=== PATIENT | male | born 1925 | race Caucasian/White ===

== ENCOUNTER 2016-04-24 14:58 | Inpatient (IN) ==
--- NOTE | 2016-04-24 15:08 | Emergency Department Note ---
Disposition Forms: ED Satisfaction Letter Chest Pain HPI - General Chief Complaint: ED Chest Pain Stated Complaint: CP/DOLORES - Related Data Home Medications Medication Instructions Recorded Confirmed Allopurinol [Zyloprim] 200 mg PO DAILY 11/15/14 04/24/16 Aspirin Enteric Coated [Aspirin EC] 81 mg PO DAILY 11/15/14 04/24/16 Atenolol [Tenormin] 50 mg PO DAILY 11/15/14 04/24/16 Atorvastatin [Lipitor] 5 mg PO DAILY 11/15/14 04/24/16 Dofetilide [Tikosyn] 500 mcg PO BID 11/15/14 04/24/16 Dutasteride [Avodart] 0.5 mg PO DAILY 11/15/14 04/24/16 Ezetimibe [Zetia] 10 mg PO DAILY 11/15/14 04/24/16 Fluticasone/Salmeterol [Advair 1 puff IH BID 11/15/14 04/24/16 250-50 Diskus] Furosemide [Lasix] 20 - 40 mg PO DAILY 11/15/14 04/24/16 Gabapentin [Neurontin] 300 mg PO TID 11/15/14 04/24/16 Lansoprazole [Prevacid] 30 mg PO DAILY 11/15/14 04/24/16 Levalbuterol [Xopenex] 2 puff IH QID 11/15/14 04/24/16 Lisinopril [Zestril] 40 mg PO DAILY 11/15/14 04/24/16 Magnesium Oxide [Mag-Ox] 400 mg PO DAILY 11/15/14 04/24/16 [place]-3S/Dha/Epa/Fish Oil [Fish 1 cap PO BID 11/15/14 04/24/16 Oil 1,200 mg Softgel] Allergies Allergy/AdvReac Type Severity Reaction Status Date / Time amlodipine Allergy Hives Verified 04/24/16 12:57 Penicillins [PCN] Allergy Hives Verified 04/24/16 12:57 Sulfa (Sulfonamide Allergy Hives Verified 04/24/16 12:57 Antibiotics) Chest Pain PMH - Past Medical History Medical history: Reports: non-contributory Surgical history: Reports: cholecystectomy, pacemaker/AICD, other (Back surgery) Psychiatric history: Reports: no psych history - Social History Smoking Status: Never smoker Alcohol use: Reports: none Drug use: Reports: none
[2016-04-24] MEDS ORDERED: Aspirin 81 MG TAB.CHEW PO STA (15:32)
--- NOTE | 2016-04-24 15:37 | Emergency Department Note ---
Disposition Clinical Impression: Chest pain Qualifiers: Chest pain type: chest pain due to myocardial ischemia Ischemic chest pain type : unspecified angina pectoris type Qualified Code(s): I20.9 - Angina pectoris, unspecified Disposition: Admitted As Inpatient Condition: Fair Referrals: NO,PCP [Primary Care Provider] - Forms: ED Satisfaction Letter Time of Disposition: 16:49 Chest Pain HPI - General Chief Complaint: ED Chest Pain Stated Complaint: CP/DOLORES Source: patient, family, EMS Mode of arrival: EMS Limitations: no limitations Vital Signs Reviewed: Yes Nursing Notes Reviewed: Yes - History of Present Illness HPI Narrative: Patient presents with chest pain. He had chest pain last night while he was lying in bed. This morning when he was exerting himself he would get this pain so he went to urgent care. Urgent care did a chest x-ray and arrange to have him transferred up here. He came by private vehicle. On the way to stop at [employer] to grab something need in this patient got up out of the car and walked into the bathroom. By time you to the bathroom he is having severe chest pain, shortness of breath, and diaphoresis and felt like his legs were to give out on him. He actually ended up urinating on his own leg because he could not do anything. They called the squad and the squad transported him here. Lying in the bed at rest he has no discomfort. Pt complaint: chest pain Onset (ago): hour(s) (Woke him up from sleep last night. Recurs every time he has exertion today) Duration: intermittent, now resolved Onset: during exertion (Although last night it came on while he was lying in bed , today it has been every time he exerts himself.) Pain Location: substernal Severity: severe (At its worst just prior to arrival) Severity scale (1-10): 0 (He says he feels no chest discomfort at this time while lying in the bed.) Quality: tightness, heaviness Pain Radiation: RUE Improves with: rest Worsens with: exertion Context: recent illness (Currently being treated for what sounds like allergic rhinitis or is not being treated with any antibiotics.) Associated symptoms: Reports: diaphoresis (Just before coming he had an episode of chest pain when he walked from his car into the [employer] to use the bathroom and he says he became so diaphoretic that it was like he had taken a shower.), dyspnea (He feels short of breath when the pain is there), other (While having the pain he gets so weak he feels like his legs are going out from under) - Related Data Home Medications Medication Instructions Recorded Confirmed Allopurinol [Zyloprim] 200 mg PO DAILY 11/15/14 04/24/16 Aspirin Enteric Coated [Aspirin EC] 81 mg PO DAILY 11/15/14 04/24/16 Atenolol [Tenormin] 50 mg PO DAILY 11/15/14 04/24/16 Atorvastatin [Lipitor] 5 mg PO DAILY 11/15/14 04/24/16 Dofetilide [Tikosyn] 500 mcg PO BID 11/15/14 04/24/16 Dutasteride [Avodart] 0.5 mg PO DAILY 11/15/14 04/24/16 Ezetimibe [Zetia] 10 mg PO DAILY 11/15/14 04/24/16 Fluticasone/Salmeterol [Advair 1 puff IH BID 11/15/14 04/24/16 250-50 Diskus] Gabapentin [Neurontin] 300 mg PO TID 11/15/14 04/24/16 Lansoprazole [Prevacid] 30 mg PO DAILY 11/15/14 04/24/16 Levalbuterol [Xopenex] 2 puff IH QID 11/15/14 04/24/16 Lisinopril [Zestril] 40 mg PO DAILY 11/15/14 04/24/16 Magnesium Oxide [Mag-Ox] 400 mg PO DAILY 11/15/14 04/24/16 [place]-3S/Dha/Epa/Fish Oil [Fish 1 cap PO DAILY 11/15/14 04/24/16 Oil 1,200 mg Softgel] Cetirizine HCl [Zyrtec] 10 mg PO DAILY 04/24/16 04/24/16 Fluticasone Propionate Nasal 50 mcg NS QPM 04/24/16 04/24/16 [Flonase] Guaifenesin [Mucinex] 600 mg PO Q12H PRN 04/24/16 04/24/16 Allergies Allergy/AdvReac Type Severity Reaction Status Date / Time amlodipine Allergy Hives Verified 04/24/16 12:57 Penicillins [PCN] Allergy Hives Verified 04/24/16 12:57 Sulfa (Sulfonamide Allergy Hives Verified 04/24/16 12:57 Antibiotics) All systems ED: reviewed and negative except as stated. Constitutional: Reports: chills (Patient says he had chills last night in bed but has had none today.). Denies: fever ENT ED: Reports: congestion. Denies: ear pain, throat pain Cardiovascular: Reports: chest pain, dyspnea on exertion. Denies: palpitations Respiratory: Denies: cough, wheezes Gastrointestinal: Denies: abdominal pain, nausea, vomiting Musculoskeletal: Denies: back pain, neck pain Integumentary: Denies: rash Neurological: Denies: headache Chest Pain PMH - Past Medical History Medical history: Reports: COPD, diabetes, GERD, hyperlipidemia, hypertension, renal disease Surgical history: Reports: cholecystectomy, pacemaker/AICD, other (Back surgery) Psychiatric history: Reports: no psych history - Social History Smoking Status: Never smoker Alcohol use: Reports: none Drug use: Reports: none Physical Exam - General Limitations: no limitations General appearance: alert, in no apparent distress - Head Head exam: atraumatic, normocephalic - Eye Eye exam: Present: normal appearance, PERRL, EOMI - ENT ENT exam: normal exam, normal oropharynx, mucous membranes moist, normal external ear exam - Neck Neck exam: Present: normal inspection, full ROM. Absent: tenderness - Chest Chest inspection: Present: normal inspection, symmetric chest wall rise. Absent : tenderness - Respiratory Respiratory exam: Present: normal lung sounds bilaterally. Absent: respiratory distress, wheezes - Cardiovascular Cardiovascular exam: Present: regular rate, normal rhythm, normal heart sounds - Abdominal Exam Abdominal exam: Present: soft, Non-Tender, normal bowel sounds - Extremities Exam Extremities exam: Present: normal inspection, full ROM. Absent: tenderness, pedal edema, calf tenderness - Neurological Exam Neurological exam: Present: alert, oriented X3 - Psychiatric Psychiatric exam: Present: normal affect, normal mood - Skin Skin exam: Present: warm, dry. Absent: rash Course Course Narrative: Patient presents with a complaint of chest pain that is associated with shortness of breath and diaphoresis and overall weakness. This is been intermittent today. It comes on every time he exerts himself. He describes a long history of symptoms of chest discomfort and shortness of breath with prolonged walking in the past, however he is only walking a short distance today and getting dramatically worse symptoms than he is ever experienced before. Furthermore is never gotten diaphoretic with this issue before. He talked about having some chills last night and then was treated for a cough and runny nose recently. We have to be concerned about an infection in the lungs but the chest x-ray itself was negative and the lung sounds are normal. I am very concerned about cardiac etiology at this point. We will be doing a chest pain workup on the patient. It is likely that he will need to be admitted to the hospital because of the significant amount of symptoms she has with minimal exertion. Final disposition will be based on diagnostic results and reevaluation. - Reevaluation(s) Reevaluation #1: Patient remains asymptomatic at this time. Lab workup is negative for acute issues. X-rays fine. EKG is uninterpretable due to the pacemaker. I do not find anything that is clearly indicative of infection. I am very concerned this represents worsening angina in this patient. He got his aspirin. He is asymptomatic at rest. We will not start any further treatment at this time. He will need to be admitted to the hospital for further evaluation. Time: 16:49 - Consultations Consultation #1: Sneha Demarco CNP - I discussed the case with the nurse practitioner on-call for the admitting team. We discussed the patient's presentation and results. He has been accepted for admission to the hospital. Time: 16:48 Vital Signs Temperature 99.3 F 04/24/16 15:03 Pulse Rate 66 04/24/16 15:03 Respiratory Rate 18 04/24/16 15:03 Blood Pressure 165/69 04/24/16 15:03 O2 Sat by Pulse Oximetry 94 L 04/24/16 15:03 Temperature 99.3 F 04/24/16 15:03 Pulse Rate 66 04/24/16 15:03 Respiratory Rate 18 04/24/16 15:03 Blood Pressure 165/69 04/24/16 15:03 O2 Sat by Pulse Oximetry 95 04/24/16 15:28 Oxygen Delivery Oxygen Delivery Room Air Chest Pain - Medical Records Medical records reviewed: Yes I reviewed the patient's medical records. - Lab Data Lab results reviewed: Yes I reviewed the patient's lab results. Result diagrams: 04/24/16 15:50 02/20/17 15:50 Lab Results 04/24/16 04/24/16 04/24/16 Range/Units 15:50 15:50 15:50 WBC 8.2 (4.3-11.1) K/mcL RBC 3.83 L (4.19-5.50) M/mcL Hgb 11.7 L (12.9-16.9) g/dL Hct 36.1 L (37.5-50.1) % MCV 94.3 (83.0-100.0) fL MCH 30.5 (28.0-33.3) pg MCHC 32.4 (31.6-35.5) g/dL RDW 14.5 (11.5-14.5) % Plt Count 153 (140-400) K/mcL MPV 11.8 (9.4-12.4) fL Immature Gran % 0.4 (0-4) % Seg Neutrophils % 75.7 % Lymphocytes % 11.9 % Monocytes % 11.4 % Eosinophils % 0.1 % Basophils % 0.5 % Neutrophils # 6.2 (1.6-8.9) K/mcL Lymphocytes # 1.0 (0.6-4.6) K/mcL Monocytes # 0.9 (0.0-1.3) K/mcL Eosinophils # 0.0 (0.0-0.6) K/mcL Basophils # 0.0 (0.0-0.2) K/mcL PT (9.4-12.1) Seconds INR Sodium 134 L (136-145) mEq/L Potassium 5.1 H (3.5-4.5) mEq/L Chloride 103 (98-109) mEq/L Carbon Dioxide 23 (19-29) mEq/L BUN 33 H D (8-26) mg/dL Creatinine 1.52 H (0.72-1.25) mg/dL Est GFR ( Amer) 53 L (> 60) Est GFR (Non-Af Amer) 43 L (> 60) BUN/Creatinine Ratio 22 (6-26) Glucose 170 H (70-99) mg/dL Calculated Osmolality 289 (280-300) Lactic Acid (0.5-2.2) mmol/L Calcium 9.4 (8.6-10.8) mg/dL Troponin I (0-0.03) ng/mL B-Natriuretic Peptide 848 H (0-100) pg/mL 04/24/16 04/24/16 04/24/16 Range/Units 15:50 15:50 15:50 WBC (4.3-11.1) K/mcL RBC (4.19-5.50) M/mcL Hgb (12.9-16.9) g/dL Hct (37.5-50.1) % MCV (83.0-100.0) fL MCH (28.0-33.3) pg MCHC (31.6-35.5) g/dL RDW (11.5-14.5) % Plt Count (140-400) K/mcL MPV (9.4-12.4) fL Immature Gran % (0-4) % Seg Neutrophils % % Lymphocytes % % Monocytes % % Eosinophils % % Basophils % % Neutrophils # (1.6-8.9) K/mcL Lymphocytes # (0.6-4.6) K/mcL Monocytes # (0.0-1.3) K/mcL Eosinophils # (0.0-0.6) K/mcL Basophils # (0.0-0.2) K/mcL PT 13.7 H (9.4-12.1) Seconds INR 1.3 Sodium (136-145) mEq/L Potassium (3.5-4.5) mEq/L Chloride (98-109) mEq/L Carbon Dioxide (19-29) mEq/L BUN (8-26) mg/dL Creatinine (0.72-1.25) mg/dL Est GFR ( Amer) (> 60) Est GFR (Non-Af Amer) (> 60) BUN/Creatinine Ratio (6-26) Glucose (70-99) mg/dL Calculated Osmolality (280-300) Lactic Acid 2.1 (0.5-2.2) mmol/L Calcium (8.6-10.8) mg/dL Troponin I 0.02 (0-0.03) ng/mL B-Natriuretic Peptide (0-100) pg/mL - Radiology Data Radiology results reviewed: Yes I reviewed the patient's radiology results. Chest x-ray was done earlier today at the urgent care. That chest x-ray was read by the radiologist as unremarkable. - EKG Data EKG attestation: Yes I reviewed and interpreted this EKG. Rate: normal Rhythm: other (Ventricular paced rhythm) Interpretation: other (Electronic ventricular paced rhythm. Nothing else can be said about this 12-lead EKG.)
[2016-04-24 16:01] LABS: Basophils % 0.5 %; Eosinophils % 0.1 %; Hematocrit 36.1 % (37.5-50.1); Hemoglobin 11.7 g/dL (12.9-16.9); Immature Granulocytes % 0.4 % (0-4); Lymphocytes % 11.9 %; Mean Corpuscular HGB Conc 32.4 g/dL (31.6-35.5); Mean Corpuscular Hemoglobin 30.5 pg (28.0-33.3); Mean Corpuscular Volume 94.3 fL (83.0-100.0); Mean Platelet Volume 11.8 fL (9.4-12.4); Monocytes # 0.9 K/mcL (0.0-1.3); Monocytes % 11.4 %; Neutrophils # 6.2 K/mcL (1.6-8.9); Platelet Count 153 K/mcL (140-400); Red Blood Count 3.83 M/mcL (4.19-5.50); Red Cell Distribution Width 14.5 % (11.5-14.5); Segmented Neutrophils % 75.7 %
[2016-04-24 16:06] LABS: INR 1.3; Prothrombin Time 13.7 Seconds (9.4-12.1)
[2016-04-24 16:15] LABS: Calcium 9.4 mg/dL (8.6-10.8); Potassium 5.1 mEq/L (3.5-4.5)
[2016-04-24] MEDS ORDERED: Levalbuterol 1 PUFF INHALER IH PRN (19:15)
[2016-04-24] MEDS ORDERED: Ondansetron 4 MG/2 ML VIAL IVP PRN (19:19)
[2016-04-24] MEDS ORDERED: Naloxone 0.4 MG/ML INJ IVP PRN (19:19)
[2016-04-24] MEDS ORDERED: *HR* Morphine 2 MG/ML SYRINGE IVP PRN (19:19)
[2016-04-24] MEDS ORDERED: *HR* Dextrose 50 % in Water (Syg) 50 ML SYRINGE IVP PRN (19:32)
[2016-04-24] MEDS ORDERED: D5% in Water 1,000 ML IV PRN (19:32)
[2016-04-24] MEDS ORDERED: Dextrose Gel 15 GM PO PRN ×2 (19:32)
--- NOTE | 2016-04-24 19:56 | Internal Med History&Physical ---
Date of Encounter: 04/24/16 Time of Encounter: 18:30 Internal Medicine - H&P: HPI Chief complaint: Typical chest pain, BENOIT, Admitted From: Emergency Dept Plans for Post Hospital Care: Home History of present illness: Mr. Jean is a 89 year old male with history of atrial fibrillation with pacemaker and on Tikosyn, COPD, emphysema, history iof asbestosis, presents with exertional chest pain and dyspnea on exertion of 2-3 days duration. He is a poor historian. He appear to suggest that the symptoms have been for probably weeks, but got worse the past couple of days. He reports the last few weeks has been been stressful because his suffered a stroke and was hospitalized, subsequently transferred to a SNF for rehabilitation. He has had to be by her bedside. He reports he gets winded with littel exertion and has lower chest wall pain and epigastric pain. especially with exertion. He informed his son who advised they go to Urgent Care. At URGENT CARE, HE WAS UNABLE TO WARK ANY SIGNIFICANT DISTANCE AND WAS NOTED TO BE FLUSHED, AND DIAPHORETIC. Urgent care advised to comes to [place] for cardiac evaluation. on there way down to [facility], he tried to use the rest room, and had to be supported after taking a few steps. He had chest pain while in bed yesternight. He has chronic respiratory condition related to occupational exposure many years ago. His last PFT reports a moderate obstructive pattern, with air trapping, and severe diffusion impairment. 2D ECHO in November of 2014, reports LVEF of 60%. He denies PND, orthopnea, or leg swelling. No new urinary symptoms, no focal weakness, no feels weakness in his legs when he walks a distance. he reports intermittent light-headedness. He reports chronic back pain, and has been informed he has L3 disc disease. His last stress test was about 5 years ago. He reports his first pacemaker was in place for 5-6 years, it was changed 6 years ago. He informs me that Dr Bryson plans changing or interogating the pacemaker in May 16. He is FULL CODE as per discussion. He no minates his Renata, as his NOK/POA ). ROS: A 10-point ROS was performed, positives and relevant negatives are detailed , system-symptoms not mentioned are assumed negatove unless otherwise stated. Family history: his mother lived till she was 97, but had some heart issues Vital Signs Temperature 99.3 F 04/24/16 15:03 Pulse Rate 66 04/24/16 15:03 Respiratory Rate 18 04/24/16 15:03 Blood Pressure 165/69 04/24/16 15:03 O2 Sat by Pulse Oximetry 94 L 04/24/16 15:03 Temperature 99.3 F 04/24/16 15:03 Pulse Rate 66 04/24/16 15:03 Respiratory Rate 18 04/24/16 15:03 Blood Pressure 165/69 04/24/16 15:03 O2 Sat by Pulse Oximetry 95 04/24/16 15:28 O/E: Not in distress, he is not ill or toxic looking HEENT: Not pale, anicteric, afebrile, acyanotic, non-tachypneic, no JVD. Chest: CTAB, chest pain is not reproducible. Palpable pacemaker over the upper left chest wall, with 2 old healed overlying scars. Heart: RRR, HS1.2 no murmur Abdomen: soft, non-tender, no masses. BS+ assigner; aao x 3, no gross focal neurological deficits. Psychiatry: mood is good, affect is congruent, speech is normal. Thought process is logical and goal-directed. Extremities: No pedal edema, normal pedal edema, no calf tenderness. Lab Results 04/24/16 04/24/16 04/24/16 Range/Units 15:50 15:50 15:50 WBC 8.2 (4.3-11.1) K/mcL RBC 3.83 L (4.19-5.50) M/mcL Hgb 11.7 L (12.9-16.9) g/dL Hct 36.1 L (37.5-50.1) % MCV 94.3 (83.0-100.0) fL MCH 30.5 (28.0-33.3) pg MCHC 32.4 (31.6-35.5) g/dL RDW 14.5 (11.5-14.5) % Plt Count 153 (140-400) K/mcL MPV 11.8 (9.4-12.4) fL Immature Gran % 0.4 (0-4) % Seg Neutrophils % 75.7 % Lymphocytes % 11.9 % Monocytes % 11.4 % Eosinophils % 0.1 % Basophils % 0.5 % Neutrophils # 6.2 (1.6-8.9) K/mcL Lymphocytes # 1.0 (0.6-4.6) K/mcL Monocytes # 0.9 (0.0-1.3) K/mcL Eosinophils # 0.0 (0.0-0.6) K/mcL Basophils # 0.0 (0.0-0.2) K/mcL PT (9.4-12.1) Seconds INR Sodium 134 L (136-145) mEq/L Potassium 5.1 H (3.5-4.5) mEq/L Chloride 103 (98-109) mEq/L Carbon Dioxide 23 (19-29) mEq/L BUN 33 H D (8-26) mg/dL Creatinine 1.52 H (0.72-1.25) mg/dL Est GFR ( Amer) 53 L (> 60) Est GFR (Non-Af Amer) 43 L (> 60) BUN/Creatinine Ratio 22 (6-26) Glucose 170 H (70-99) mg/dL Calculated Osmolality 289 (280-300) Lactic Acid (0.5-2.2) mmol/L Calcium 9.4 (8.6-10.8) mg/dL Troponin I (0-0.03) ng/mL B-Natriuretic Peptide 848 H (0-100) pg/mL 04/24/16 04/24/16 04/24/16 Range/Units 15:50 15:50 15:50 WBC (4.3-11.1) K/mcL RBC (4.19-5.50) M/mcL Hgb (12.9-16.9) g/dL Hct (37.5-50.1) % MCV (83.0-100.0) fL MCH (28.0-33.3) pg MCHC (31.6-35.5) g/dL RDW (11.5-14.5) % Plt Count (140-400) K/mcL MPV (9.4-12.4) fL Immature Gran % (0-4) % Seg Neutrophils % % Lymphocytes % % Monocytes % % Eosinophils % % Basophils % % Neutrophils # (1.6-8.9) K/mcL Lymphocytes # (0.6-4.6) K/mcL Monocytes # (0.0-1.3) K/mcL Eosinophils # (0.0-0.6) K/mcL Basophils # (0.0-0.2) K/mcL PT 13.7 H (9.4-12.1) Seconds INR 1.3 Sodium (136-145) mEq/L Potassium (3.5-4.5) mEq/L Chloride (98-109) mEq/L Carbon Dioxide (19-29) mEq/L BUN (8-26) mg/dL Creatinine (0.72-1.25) mg/dL Est GFR ( Amer) (> 60) Est GFR (Non-Af Amer) (> 60) BUN/Creatinine Ratio (6-26) Glucose (70-99) mg/dL Calculated Osmolality (280-300) Lactic Acid 2.1 (0.5-2.2) mmol/L Calcium (8.6-10.8) mg/dL Troponin I 0.02 (0-0.03) ng/mL B-Natriuretic Peptide (0-100) pg/mL Chest x-ray was done earlier today at the urgent care. That chest x-ray was read by the radiologist as unremarkable. EKG: Ventricular paced rhythm, normal rate. Review of past studies His last PFT reports a moderate obstructive pattern, with air trapping, and severe diffusion impairment. 2D ECHO in November of 2014, reports LVEF of 60%, IMP Typical chest pain, stable angina SOB due to CAD vs symptomatic diastolic heart failure Chronic morbidities COPD, emphysema, history iof asbestosis Atrial fibrillation, chronic on Tikosyn Diastolic heart failure Pacemaker in-situ Hypertension DM2 CKDIII. Chronic back pain. PLAN Admit to telemetry Cycle troponin, serial EKG, 2D ECHO, cardiac stress test Pacemaker interrogation Hold Atenolol until completion of stress test. Diabetic diet, low dose insulin sliding scale Continue other medications of chronic morbidities. Lovenox for DVT propphylaxis No indication for GI prophylaxis I discussed my assessment with the patient, her son was at bedside, they are agreeable to admission. He is admitted for evaluation of typical chest pain and SOB. Considering his age and multiple risk factors, an admission is informed. Past Med Surg Social Fam HX - Past Medical History Medical history: COPD, diabetes, GERD, hyperlipidemia, hypertension, renal disease Psychiatric history: no psych history - Past Surgical History Surgical History: cholecystectomy, pacemaker/AICD, other (Back surgery) - Social History Smoking Status: Never smoker Smokeless Tobacco Status: No Alcohol use: none Drug use: none Internal Medicine - H&P: Meds Allopurinol [Zyloprim] 200 mg PO DAILY 11/15/14 [History] Aspirin Enteric Coated [Aspirin EC] 81 mg PO DAILY 11/15/14 [History] Atenolol [Tenormin] 50 mg PO DAILY 11/15/14 [History] Atorvastatin [Lipitor] 5 mg PO DAILY 11/15/14 [History] Dofetilide [Tikosyn] 500 mcg PO BID 11/15/14 [History] Dutasteride [Avodart] 0.5 mg PO DAILY 11/15/14 [History] Ezetimibe [Zetia] 10 mg PO DAILY 11/15/14 [History] Fluticasone/Salmeterol [Advair 250-50 Diskus] 1 puff IH BID 11/15/14 [History] Gabapentin [Neurontin] 300 mg PO TID 11/15/14 [History] Lansoprazole [Prevacid] 30 mg PO DAILY 11/15/14 [History] Levalbuterol [Xopenex] 2 puff IH QID 11/15/14 [History] Lisinopril [Zestril] 40 mg PO DAILY 11/15/14 [History] Magnesium Oxide [Mag-Ox] 400 mg PO DAILY 11/15/14 [History] [place]-3S/Dha/Epa/Fish Oil [Fish Oil 1,200 mg Softgel] 1 cap PO DAILY 11/15/14 [ History] Cetirizine HCl [Zyrtec] 10 mg PO DAILY 04/24/16 [History] Fluticasone Propionate Nasal [Flonase] 50 mcg NS QPM 04/24/16 [History] Guaifenesin [Mucinex] 600 mg PO Q12H PRN 04/24/16 [History] Allergies amlodipine Allergy (Verified 04/24/16 12:57) Hives Penicillins [PCN] Allergy (Verified 04/24/16 12:57) Hives Sulfa (Sulfonamide Antibiotics) Allergy (Verified 04/24/16 12:57) Hives All Systems PM: A 10-system review of systems was performed and is negative for pertinent findings except as documented above in the HPI. - Constitutional Vitals: Temp Pulse Resp BP Pulse Ox 97.8 F 65 16 144/77 94 L 04/24/16 19:18 04/24/16 19:18 04/24/16 19:18 04/24/16 19:18 04/24/16 19:18 Internal Med - H&P Results - Labs CBC & Chem 7: 04/24/16 15:50 04/24/16 15:50
[2016-04-24 20:49] LABS: Magnesium 2.3 mg/dL (1.6-2.6); Phosphorous 3.1 mg/dL (2.3-4.7)
[2016-04-24] MEDS: Budesonide/Formoterol 160/4.5 MDI IH SCH (21:52)
[2016-04-24] MEDS: Gabapentin 300 MG CAPSULE PO SCH (21:53)
[2016-04-24] MEDS: Insulin LISPRO 300 UNITS/3 ML VIAL SQ SCH (22:05)
[2016-04-25 05:19] LABS: Chol/HDL Ratio 2.7 (0-4.9)
[2016-04-25] MEDS ORDERED: Regadenoson 0.4 MG/5 ML SYRINGE IVP ONE (06:03)
[2016-04-25] MEDS: *HR* Enoxaparin 40 MG/0.4 ML SYRINGE SQ SCH (06:21)
[2016-04-25] MEDS ORDERED: Lisinopril 20 MG TABLET PO SCH ×2 (09:00→15:33)
--- NOTE | 2016-04-25 09:20 | Nuclear Medicine Stress Report ---
Regadenoson Nuclear Stress Name: Beto Jean Date of Study: 04/25/2016 Date: 1925 Ht: 70.0 in Medical Record#: [id number] Age: 89 Wt: 204.0 lb Gender: Male Order #: [id number] Location: [facility] Room: [facility] Supervising Provider: Niranjan Woodawrd CNP Reading Physician: Radha Mazariegos DO Ordering Physician: Irais Cowan CNP Primary Care Physician: Sammy Renee MD Stress Technologist: Jennifer Bacon RRT Training Coordinator: Radha Carrasco Indications: Chest Pain Impression: Perfusion imaging was negative for ischemia or infarct. Inferior wall artifact. Pharmacologic ECG was non diagnostic for ischemia. Gated EF = >70%. History: Hypertension Diabetes Hypercholesteremia Stress Test Summary: Stress Test Type: Pharmacologic Regadenoson 0.4mg/5ml given IV Baseline Information: Initial Heart Rate: 65 Blood Pressure: 142/66 Stress Information: Test Terminated Due to (primary): As per protocol Maximum Blood Pressure: 120/58 Maximum Heart Rate: 65 Percent Maximum Heart Rate Achieved: 50 Double Product: 7800 METS Reached: 1 Symptoms: No chest symptoms Nuclear Summary: SPECT myocardial perfusion imaging using Tc99m Sestamibi given intravenously was performed at rest and following cardiac stress testing. The resting images were obtained following initial dose of 11.3 mCi. Following stress an additional dose of 35.6 mCi was given at peak exercise or 30 seconds post regadenoson infusion. Medication Given: Time Medication Dose Units Route Findings: Stress Note * Resting ECG demonstrated a v-paced rhythm. * Pharmacologic stress ECG is non diagnostic for ischemia due to baseline paced rhythm. * No arrhythmias were noted during stress. * Patient had no chest pain during stress. Hemodynamic responses * Normal hemodynamic responses to pharmacologic stress. Study Quality * Study quality was fair. Left Ventricle * The left ventricle is not dilated. TID * No evidence of transient ischemic dilatation. Lung Uptake * There is no evidence of increase lung uptake. NORMALS * Normal wall motion. PERFUSION * There is a medium sized, moderate intensity fixed inferior wall and apex perfusion defect. Wall motion/thickening are normal. Findings are consistent with artifact. * Other areas demonstrates normal rest and stress perfusion. Gated EF > 70% * Gated EF > 70%. Updated by Radha Mazariegos on 04/25/2016 9:14:29 AM electronically signed on 04/25/2016 9:16:28 AM with status of Final
[2016-04-25] MEDS: Aspirin Enteric Coated 81 MG Tablet PO SCH (09:27)
[2016-04-25] MEDS: Magnesium Oxide 400 MG TABLET PO SCH (09:27)
[2016-04-25] MEDS: Gabapentin 300 MG CAPSULE PO SCH ×3 (09:27→22:35)
[2016-04-25] MEDS: Insulin LISPRO 300 UNITS/3 ML VIAL SQ SCH ×4 (09:27→20:37)
[2016-04-25] MEDS: Loratadine 10 MG TABLET PO SCH (09:27)
[2016-04-25] MEDS: (Omega-3s/Dha/Epa/Fish Oil [Fish Oil 1,200 Mg Softgel PO SCH (09:32)
[2016-04-25] MEDS: (Ezetimibe [Zetia] 10 MG) PO SCH (09:32)
[2016-04-25] MEDS: (Dutasteride [Avodart] 0.5 MG) PO SCH (09:32)
[2016-04-25] MEDS: Budesonide/Formoterol 160/4.5 MDI IH SCH ×2 (12:03→19:58)
[2016-04-25 12:34] LABS: Bilirubin,Urine Negative (Negative); Blood,Urine Negative (Negative); Clarity,Urine Clear (Clear); Color,Urine Yellow (Yellow); Glucose,Urine (UA) Normal (Normal); Ketones,Urine Negative (Negative); Leukocyte Esterase,Urine Negative (Negative); Nitrite,Urine Negative (Negative); PH,Urine 5.5 pH Units (5.0-8.0); Protein,Urine 30 mg/dL (Neg-Trace); Urobilinogen,Urine Normal (Normal)
[2016-04-25 12:37] LABS: Bacteria,Urine None Seen per hpf (None-Few); Hyaline Casts,Urine None Seen per lpf (None-Few); RBC,Urine 0-3 per hpf (0-3); Squamous Epithelial Cell,Urine Moderate per lpf (None-Few); WBC,Urine 0-3 per hpf (0-3)
[2016-04-25 13:24] LABS: Calcium 9.2 mg/dL (8.6-10.8); Potassium 4.7 mEq/L (3.5-4.5)
--- NOTE | 2016-04-25 14:08 | Cardiology Consult Note ---
<Arnold Valles G - Last Filed: 04/25/16 14:26> Date of Encounter: 04/25/16 Assessment and Plan Discussion w patient/family: The assessment and plan as outlined above was discussed with the patient and/or family members who expressed understanding and agreement. All questions were answered. Thank you for involving us in the care of your patient. Please call with any questions. History of Present Illness History of present illness: Mr. Jean is a 89 year old male Medications and Allergies Allopurinol [Zyloprim] 200 mg PO DAILY 11/15/14 [History] Aspirin Enteric Coated [Aspirin EC] 81 mg PO DAILY 11/15/14 [History] Atenolol [Tenormin] 50 mg PO DAILY 11/15/14 [History] Atorvastatin [Lipitor] 5 mg PO DAILY 11/15/14 [History] Dofetilide [Tikosyn] 500 mcg PO BID 11/15/14 [History] Dutasteride [Avodart] 0.5 mg PO DAILY 11/15/14 [History] Ezetimibe [Zetia] 10 mg PO DAILY 11/15/14 [History] Fluticasone/Salmeterol [Advair 250-50 Diskus] 1 puff IH BID 11/15/14 [History] Gabapentin [Neurontin] 300 mg PO TID 11/15/14 [History] Lansoprazole [Prevacid] 30 mg PO DAILY 11/15/14 [History] Levalbuterol [Xopenex] 2 puff IH QID 11/15/14 [History] Lisinopril [Zestril] 40 mg PO DAILY 11/15/14 [History] Magnesium Oxide [Mag-Ox] 400 mg PO DAILY 11/15/14 [History] [place]-3S/Dha/Epa/Fish Oil [Fish Oil 1,200 mg Softgel] 1 cap PO DAILY 11/15/14 [ History] Cetirizine HCl [Zyrtec] 10 mg PO DAILY 04/24/16 [History] Fluticasone Propionate Nasal [Flonase] 50 mcg NS QPM 04/24/16 [History] Guaifenesin [Mucinex] 600 mg PO Q12H PRN 04/24/16 [History] Allergies amlodipine Allergy (Verified 04/24/16 12:57) Hives Penicillins [PCN] Allergy (Verified 04/24/16 12:57) Hives Sulfa (Sulfonamide Antibiotics) Allergy (Verified 04/24/16 12:57) Hives All Systems Review: A 10-system review of systems was performed and is negative for pertinent findings except as documented above in the HPI. Physical Examination Vital Signs, Last 4 Hours Temp Pulse Resp BP Pulse Ox 04/25/16 11:39 97.4 F L 74 16 146/64 98 Results 04/24/16 15:50 04/25/16 12:54 Lab Results 04/24/16 04/25/16 04/25/16 22: 04:11 12:54 Sodium 134 L Potassium 4.7 H Chloride 103 Carbon Dioxide 22 BUN 39 H Creatinine 1.66 H Glucose 125 H Calcium 9.2 Troponin I 0.02 0.05 H* Consult Discharge Plan - Plan Referrals: Sammy Renee MD [Primary Care Provider] - 04/26/16 2:45 pm - Attending Attestation I examined this patient and my medical decision-making was reviewed with the SERVICE OFFICER/PA/Advanced Practice Nurse/Resident Physician. I agree with the documented findings, disposition and treatment plan as described except to the extent set forth below. Pt had a GXT that was neg pain is non radiating , no sob, diaphoresis VSS JVD: 6.7 cm Chest : Clear CVS: RRR plan; cont present management clinically no signs of ischemia Thanks ! <Niranjan Woodward - Last Filed: 04/25/16 15:02> Date of Encounter: 04/25/16 Time of Encounter: 14:00 Assessment and Plan (1) COPD exacerbation Current Visit: No Status: Acute Per Cardiology: Hx of asbestosis and COPD. Reports recent chills with nasal congestion. Afebrile. No leukocytosis. Chest x-ray no acute findings. (2) Atrial fibrillation Current Visit: No Status: Chronic Per Cardiology: History of paroxysmal atrial fibrillation on Tikosyn. Will evaluate creatinine clearance. Average heart rate 66 on telemetry with ventricular pacing. Last pacer check March 2016 with battery longevity 5 months-- pending follow-up with Dr. Bryson for monitoring Regarding long-term anticoagulation, not appear to be on anticoagulation other than aspirin. Anticoagulation will need to be addressed. Qualifiers: Atrial fibrillation type: paroxysmal Qualified Code(s): I48.0 - Paroxysmal atrial fibrillation (3) CAD (coronary artery disease) Current Visit: No Status: Chronic Per Cardiology: Previous records reviewed and last catheterization many years ago which showed moderate nonobstructive disease. Initial troponins negative at 0.022 and subsequently 0.05. Stress test completed today negative for ischemia or infarct. Echo pending. Suspect demand ischemia, however non-STEMI cannot be excluded. Further recommendations pending echo. No cardiac rehabilitation warranted at this time. Aspirin, statin, beta wanda, CEE inhibitor. Qualifiers: Coronary Disease-Associated Artery/Lesion type: [place] artery [place] vs. transplanted heart: [place] heart Associated angina: angina presence unspecified Qualified Code(s): I25.10 - Atherosclerotic heart disease of [place] coronary artery without angina pectoris Discussion w patient/family: The assessment and plan as outlined above was discussed with the patient and/or family members who expressed understanding and agreement. All questions were answered. Thank you for involving us in the care of your patient. Please call with any questions. History of Present Illness Consult date: 04/25/16 Requesting physician: Andres Stanley Consult reason: SOB Chief complaint: Sob, fatigue History of present illness: Mr. Jean is a 89 year old male with a relevant past medical history of pulmonary asbestosis and COPD, sinus node dysfunction with pacemaker, paroxysmal atrial fibrillation, being treated with Tikosyn, which he has been taking for the past eight years, hypertension, type 2 diabetes mellitus, and hypercholesterolemia, moderate nonobstructive CAD. Past cardiac catheterization : 70% diffuse stenosis affecting the diagonal branch, 60% stenosis of the intermediate branch, and diffuse disease affecting the circumflex. Also has significant diffuse disease distally. Right coronary artery had 80% stenosis. Distal right coronary artery receiving competitive flow. He has been medically managed. Patient and son report increasing dyspnea on exertion over the past few weeks. Reports yesterday while walking into a store to get food he developed worsening shortness of breath with diaphoresis and weakness. He denied any chest pain. Reports some chest heaviness with exertional activities. Symptoms relieved with rest. He reports main concerns are worsening shortness of breath with exertional activities. Additionally, reports chills over the past few days with recent nasal congestion. He denies any syncope or falls. Denies any active bleeding or blood loss. Reports possible generator change upcoming with Dr. Bryson in the next few months. Past Med Surg Social Fam HX - Past Medical History Attestation: Yes The following information was validated with the patient. Source: patient, old records reviewed, obtained from family Medical history: COPD, diabetes, GERD, hyperlipidemia, hypertension, renal disease Psychiatric history: no psych history - Past Surgical History Surgical History: cholecystectomy, pacemaker/AICD, other - Social History Smoking Status: Never smoker Smokeless Tobacco Status: No Alcohol use: none Drug use: none All Systems Review: A 10-system review of systems was performed and is negative for pertinent findings except as documented above in the HPI. - Constitutional Constitutional: chills, fatigue - EENT Nose, mouth and throat: sinus pain - Cardiovascular Cardiovascular: as per HPI, chest pain with exertion, dyspnea at rest, dyspnea on exertion Physical Examination Vital Signs, Last 4 Hours Temp Pulse Resp BP Pulse Ox 04/25/16 11:39 97.4 F L 74 16 146/64 98 General: Conversant, No Apparent Distress HEENT: Atraumatic, Normocephaly, Mucus Membranes Moist Neck: No JVD, Normal carotid pulses Cardiac: No Murmur, Other (Irregular irregular) Lungs: Normal Breath Sounds, No Wheeze, Rales, Rhonchi Neuro: Alert and responsive, No focal deficits noted Abdomen: Soft, Non-Tender Skin: No rashes noted on visualized skin Musculoskeletal: No Chest Wall Tenderness Extremities: No Edema, Normal Pulses Results 04/24/16 15:50 04/25/16 12:54 Lab Results Laboratory Tests 04/24/16 04/24/16 04/24/16 15:50 15:50 15:50 INR 1.3 Troponin I 0.02 B-Natriuretic Peptide 848 H 04/24/16 04/25/16 22:17 04:11 INR Troponin I 0.02 0.05 H* B-Natriuretic Peptide ITS Impressions Chest X-Ray 04/24/16 15:06 IMPRESSION: 1. No acute abnormality. D/ / Raul Mayer MD / Raul Mayer MD Interpreting Provider: Raul Mayer MD Intake & Output 04/22/16 04/23/16 04/24/16 04/25/16 23:59 23:59 23:59 23:59 Intake Total 240 / 240 Output Total 200 / 200 Balance 240 / 240 -200 / -200 Weight 92.533 kg 92.533 kg Active Medications Allopurinol (Zyloprim) 200 mg PO DAILY [facility] Stop: 10/25/16 09:01 Last Admin: 04/25/16 09:27 Dose: 200 mg Aspirin (Aspirin Ec) 81 mg PO DAILY IVÁN Stop: 10/25/16 09:01 Last Admin: 04/25/16 09:27 Dose: 81 mg Atenolol (Tenormin) 50 mg PO DAILY [facility] Stop: 10/25/16 09:01 Atorvastatin Calcium (Lipitor) 5 mg PO DAILY [facility] Stop: 10/25/16 09:01 Last Admin: 04/25/16 09:26 Dose: 5 mg Budesonide/Formoterol Fumarate (Symbicort) 2 puff IH BIDR [facility] Stop: 10/24/16 22:01 Last Admin: 04/25/16 12:03 Dose: Not Given Dextrose/Water (Dextrose 50% (Syg)) 25 ml IVP AD PRN PRN Reason: Hypoglycemia Stop: 10/24/16 19:33 Dofetilide (Tikosyn) 0.5 mg PO BID [facility] PRN Reason: Protocol Stop: 10/24/16 21:01 Last Admin: 04/25/16 09:26 Dose: 0.5 mg Enoxaparin Sodium (Lovenox) 40 mg SQ 0600 [facility] PRN Reason: Protocol Stop: 10/25/16 06:01 Last Admin: 04/25/16 06:21 Dose: 40 mg Fluticasone Propionate (Flonase) 50 mcg NS QPM [facility] PRN Reason: Protocol Stop: 10/25/16 18:01 Gabapentin (Neurontin) 300 mg PO TID [facility] Stop: 10/24/16 21:01 Last Admin: 04/25/16 09:27 Dose: 300 mg Glucagon (Glucagen) 1 mg IM ONCE PRN PRN Reason: Hypoglycemia Stop: 10/24/16 19:33 Glucose (Gluctose) 15 gm PO ONCE PRN PRN Reason: Hypoglycemia Stop: 10/24/16 19:33 Glucose (Gluctose) 30 gm PO ONCE PRN PRN Reason: Hypoglycemia Stop: 10/24/16 19:33 Guaifenesin (Mucinex) 600 mg PO Q12H PRN PRN Reason: Congestion Stop: 10/24/16 19:16 Dextrose (Dextrose 5%) 1,000 mls @ 100 mls/hr IV CONT PRN PRN Reason: HYPOGLYCEMIA Stop: 10/24/16 19:33 Insulin Human Lispro (Humalog) 0 units SQ HS IVÁN PRN Reason: Protocol Stop: 10/24/16 21:01 Last Admin: 04/24/16 22:05 Dose: Not Given Insulin Human Lispro (Humalog) 0 units SQ TIDAC IVÁN PRN Reason: Protocol Stop: 10/25/16 07:31 Last Admin: 04/25/16 12:23 Dose: 2 units Lansoprazole (Prevacid) 30 mg PO DAILY IVÁN PRN Reason: Protocol Stop: 10/25/16 09:01 Last Admin: 04/25/16 09:26 Dose: 30 mg Levalbuterol HCl (Xopenex) 2 puff IH QID PRN PRN Reason: Shortness Of Breath/Wheezing Stop: 10/24/16 21:01 Lisinopril (Zestril) 40 mg PO DAILY IVÁN PRN Reason: Protocol Stop: 10/25/16 09:01 Last Admin: 04/25/16 09:25 Dose: 40 mg Loratadine (Claritin) 10 mg PO DAILY IVÁN Stop: 10/25/16 09:01 Last Admin: 04/25/16 09:27 Dose: 10 mg Magnesium Oxide (Mag-Ox) 400 mg PO DAILY IVÁN PRN Reason: Protocol Stop: 10/25/16 09:01 Last Admin: 04/25/16 09:27 Dose: 400 mg Morphine Sulfate (Morphine Sulfate) 2 mg IVP Q4HR PRN PRN Reason: Severe Pain (7-10) Stop: 10/24/16 19:20 Naloxone HCl (Narcan) 0.4 mg IVP Q2MIN PRN PRN Reason: Opioid Reversal Stop: 10/24/16 19:20 Ondansetron HCl (Zofran) 4 mg IVP Q8HR PRN PRN Reason: Nausea And Vomiting Stop: 10/24/16 19:20 Pharmacy Profile Note (Patient Taking Own Medication) 0 each PO DAILY IVÁN Stop: 10/25/16 09:01 Last Admin: 04/25/16 09:32 Dose: Not Given Pharmacy Profile Note (Patient Taking Own Medication) 0 each PO DAILY IVÁN Stop: 10/25/16 09:01 Last Admin: 04/25/16 09:32 Dose: Not Given Pharmacy Profile Note (Patient Taking Own Medication) 0 each PO DAILY [facility] Stop: 10/25/16 09:01 Last Admin: 04/25/16 09:32 Dose: Not Given - Imaging and Cardiology Chest Xray: report reviewed Stress Test: report reviewed Echo: pending - EKG Interpretation EKG results cardiology: personally reviewed, normal ECG, sinus rhythm
--- NOTE | 2016-04-25 16:01 | ECHO - Doppler Report ---
Echocardiogram Name: Beto Jean Date of Study: 04/25/2016 Date: 1925 Ht: 71.0 in Medical Record#: [id number] Age: 89 Wt: 204.0 lb Gender: Male BSA: 2.13 Order #: [id number] Location: [facility] Room #: 3B13 Reading Physician: Radha Mazariegos DO Cable Wirer: Yenni Ca Ordering Physician: Justino Wayne MD Primary Physician: None Indications: Shortness of breath Impressions: LVEF 55%. Normal left ventricular size and systolic function. Atypical septal motion. Dilated RV with normal function. Mild-moderate mitral regurgitation. Mild tricuspid regurgitation. Mild pulmonic regurgitation. Mild pulmonary hypertension. Left Ventricular Wall Motion: Rest Echo Findings All wall segments showed normal motion. Findings: Study Quality * Technically adequate exam. Left Ventricle * Normal LV chamber size, wall thickness and function. * Indeterminate diastolic function. * Atypical septal motion. * LVEF 55%. ECG Findings * Paced rhythm. Aortic Valve * Aortic valve not well visualized. It does appear calcified. * No aortic stenosis by Doppler on this study. * Trace aortic regurgitation. Mitral Valve * Mild mitral annular calcification * No mitral stenosis. * Mild-moderate mitral regurgitation. Tricuspid Valve * Normal tricuspid valve structure. * Mild tricuspid regurgitation. * Estimated RA pressure is 8 mmHg. * Estimated RVSP is 46 mmHg. * Mild pulmonary hypertension. Pulmonic Valve * Pulmonic valve is not well visualized. * No pulmonic stenosis. * Mild pulmonic regurgitation. Pulmonary Artery * Pulmonary artery not well visualized. Right Ventricle * Dilated RV with normal function. Right Atrium * Moderately dilated right atrium. Left Atrium * Left atrium is not well visualized. Interatrial Septum * No evidence of PFO by color Doppler. IVC * The IVC is not dilated. * < 50% respiratory change. History Hypertension Diabetes Hypercholesteremia Pacer/ICD Implant 11-16-14 a Previous Echo was performed. Measurements: BP: 131/ 68 2D Normal Values IVSd: 1.00 cm 0.6 - 1.0 cm LVIDd: 3.80 cm 3.7 - 5.6 cm LVPWd: 1.00 cm 0.6 - 1.1 cm LVIDs: 3.00 cm 1.5 - 3.6 cm AO: 2.60 cm < 4.0 cm LA: 4.80 cm 2.0 - 4.0cm %FS: 21.10 cm >25 % LVOT Diam: 2.00 cm LA volume: 42 Mitral Valve Peak E:1.39 m/sec Peak E' Lat [place]:13.3 cm/s Peak E' Med [place]:12.8 cm/s E/E' Lat Ratio:10.5 E/E' Med Ratio:10.9 Tricuspid Valve TV Regurg Peak Grad: 38.00mmHg TV Regurg Peak [place]: 3.07m/sec Updated by Radha Mazariegos on 04/25/2016 3:54:52 PM electronically signed on 04/25/2016 3:56:08 PM with status of Final Wall Motion [place]: 1=Normal, 2=Hypokinesis, 3=Akinesis, 4=Dyskinesis, 5=Aneurysmal, 6=Hyperkinetic, X=Not Visualized (Blank)=Missing
--- NOTE | 2016-04-25 16:32 | Internal Med Progress Note ---
Date of Encounter: 04/25/16 Time of Encounter: 13:35 - Assessment and plan (1) Dyspnea on exertion Current Visit: Yes Status: Acute Assessment and plan: Acute on chronic Undetermined etiology I suspect worsening of chronic obstructive lung disease , he is not currently in COPD exacerbation Cardiac work up unremarkable ECHO noted Will consider Pulm eval a.m if persists Not on home O2, VSS Continue to monitor (2) Atrial fibrillation Current Visit: Yes Status: Chronic Assessment and plan: Afib with PCM TIkosyn has been discontinued by cardiology Continue atenolol, ACEI Continue telemetry Qualifiers: Atrial fibrillation type: paroxysmal Qualified Code(s): I48.0 - Paroxysmal atrial fibrillation (3) CAD (coronary artery disease) Current Visit: Yes Status: Chronic Assessment and plan: CP possibly stable angina Continue home meds Qualifiers: Coronary Disease-Associated Artery/Lesion type: [place] artery [place] vs. transplanted heart: [place] heart Associated angina: with other forms of angina Qualified Code(s): I25.118 - Atherosclerotic heart disease of [place] coronary artery with other forms of angina pectoris (4) CHF (congestive heart failure) Current Visit: Yes Status: Chronic Assessment and plan: NO evidence of congestion Continue home meds Qualifiers: Congestive heart failure type: diastolic Congestive heart failure chronicity: chronic Qualified Code(s): I50.32 - Chronic diastolic (congestive ) heart failure (5) Diabetes mellitus Current Visit: Yes Status: Chronic Assessment and plan: Sliding scale insulin, monitor FS Qualifiers: Diabetes mellitus type: type 2 Diabetes mellitus complication status: with kidney complications Diabetes mellitus complication detail: with chronic kidney disease Diabetes mellitus half-way insulin use: without half-way use Chronic kidney disease stage: stage 3 (moderate) Qualified Code(s): E11.22 - Type 2 diabetes mellitus with diabetic chronic kidney disease; N18.3 - Chronic kidney disease, stage 3 (moderate) (6) GERD (gastroesophageal reflux disease) Current Visit: Yes Status: Chronic Assessment and plan: Continue home meds Qualifiers: Esophagitis presence: esophagitis presence not specified Qualified Code(s) : K21.9 - Gastro-esophageal reflux disease without esophagitis (7) HTN (hypertension) Current Visit: Yes Status: Chronic Assessment and plan: Controlled, continue atenolol and lisinopril Renal function is at baseline Qualifiers: Hypertension type: essential hypertension Qualified Code(s): I10 - Essential (primary) hypertension (8) Hyperkalemia Current Visit: Yes Status: Acute Assessment and plan: K 5.1 on admission Improved to 4.7, no treatment given Continue close monitoring - Subjective Interval history: 89 Y/O M placed on observation for evaluation of Chest pain and shortness of breath he has a PMH of COPD/Asbestosis, Afib s/p PCM, DJD with chronic back pain, DM< HTN, HLD he is seen at bedside with son and cardiology Patient's main complain is shortness of breath, Per patient PCM was interrogated 03/2016 Work up for chest pain has been negative, stress test showed no infarct, EKG is paced, Initial troponins negative at 0.022 and subsequently 0.05 His last PFT reports a moderate obstructive pattern, with air trapping, and severe diffusion impairment. ECHO done today showed LVEF 55%, Normal LV size and function, atypical septal motion, Dilated RV, MIld MR/TR/IN, Pulm HTN CXR is unremarkable Renal function is at baseline, mild hyperkalemia - Constitutional Vitals: Temp Pulse Resp BP Pulse Ox 98.1 F 67 17 100/61 95 04/25/16 15:18 04/25/16 15:18 04/25/16 15:18 04/25/16 15:18 04/25/16 15:18 General appearance: Present: A&O X 3, pleasant, no acute distress, obese - Head Head exam: Present: atraumatic, normocephalic - Eye Eye exam: Present: PERRL, conjuntiva pink, sclera anicteric Pupils: Present: PERRL - Neck Neck exam general surgery: Present: supple, trachea midline. Absent: lymphadenopathy - Respiratory Respiratory exam: Present: CTAB Additional comments: Chest wall with PCM< old scar, no tenderness - Cardiovascular Cardiovascular exam: Present: RRR, +S1, +S2. Absent: diastolic murmur, gallop, rubs, systolic murmur - GI/Abdominal GI/Abdominal exam: Present: normal bowel sounds, soft, no peritoneal signs. Absent: distended, tenderness - Extremities Exam Extremities exam: Present: warm, radial pulses palpable and symetrical. Absent : calf tenderness, cyanotic, pedal edema - Neurological Exam Neurological exam: Present: CN II-XII intact, oriented X3, no focal deficits. Absent: pronater drift, facial droop, speech deficit - Skin Skin exam: Present: dry, intact Internal Medicine: Result - Labs CBC & Chem 7: 04/24/16 15:50 04/25/16 12:54 Labs: BMP 04/25/16 12:54 Sodium 134 L Potassium 4.7 H Chloride 103 Carbon Dioxide 22 BUN 39 H Creatinine 1.66 H Glucose 125 H Calcium 9.2 Cardiac Enzymes 04/24/16 04/25/16 Range/Units 22:17 04:11 Troponin I 0.02 0.05 H* (0-0.03) ng/mL Urine 04/25/16 Range/Units 12:23 Urine Color Yellow (Yellow) Urine Clarity Clear (Clear) Urine pH 5.5 (5.0-8.0) pH Units Ur Specific [place] 1.020 (1.010-1.025) Urine Protein 30 H (Neg-Trace) mg/dL Urine Glucose (UA) Normal (Normal) mg/dL - ABG Interpretation ABG results: PT/INR, D-dimer PT 13.7 Seconds (9.4-12.1) H 04/24/16 15:50 Consult Discharge Plan - Plan Referrals: Sammy Renee MD [Primary Care Provider] - 04/26/16 2:45 pm
[2016-04-25] MEDS: Fluticasone Propionate Nasal 50 MCG/SPRAY BOTTLE NS SCH (17:35)
--- NOTE | 2016-04-25 18:16 | Electrocardiograph Report ---
[place] [id number] Test Date: 2016-04-24 Pat Name: Beto Jean Department: 103 Room: 3B13 Gender: M [employer]: : 1925 Requested By: Kam Crum Order Number: [id number] Reading MD: Jennifer Bryson Measurements Intervals [place] Rate: 65 P: [place]: 0 QRS: -52 QRSD: 197 T: 86 QT: 493 QTc: 504 Interpretive Statements ELECTRONIC VENTRICULAR PACEMAKER ABNORMAL RHYTHM ECG Electronically Signed On 04-25-2016 18:14:16 EST by Jennifer Bryson
[2016-04-26 04:40] LABS: Calcium 8.4 mg/dL (8.6-10.8); Potassium 4.6 mEq/L (3.5-4.5)
[2016-04-26] MEDS: *HR* Enoxaparin 40 MG/0.4 ML SYRINGE SQ SCH (05:20)
[2016-04-26] MEDS: Insulin LISPRO 300 UNITS/3 ML VIAL SQ SCH ×4 (08:51→21:23)
[2016-04-26] MEDS: (Ezetimibe [Zetia] 10 MG) PO SCH (09:00)
[2016-04-26] MEDS: Magnesium Oxide 400 MG TABLET PO SCH (09:00)
[2016-04-26] MEDS: (Omega-3s/Dha/Epa/Fish Oil [Fish Oil 1,200 Mg Softgel PO SCH (09:00)
[2016-04-26] MEDS: Aspirin Enteric Coated 81 MG Tablet PO SCH (09:00)
[2016-04-26] MEDS: Gabapentin 300 MG CAPSULE PO SCH ×2 (09:00→21:23)
[2016-04-26] MEDS: (Dutasteride [Avodart] 0.5 MG) PO SCH (09:00)
[2016-04-26] MEDS: Loratadine 10 MG TABLET PO SCH (09:00)
--- NOTE | 2016-04-26 10:24 | Cardiology Progress Note ---
Date of Encounter: 04/26/16 Time of Encounter: 09:30 Assessment and Plan (1) COPD exacerbation Current Visit: No Status: Acute Per Cardiology: Hx of asbestosis and COPD. Reports recent chills with nasal congestion. Afebrile. No leukocytosis. Chest x-ray no acute findings. (2) Atrial fibrillation Current Visit: Yes Status: Chronic Per Cardiology: History of PAF on Tikosyn. Again, creatinine clearance calculated yesterday with worsening kidney function to be 39.[address] discussion with Dr. Ignacio Bryson, Tikosyn discontinued. Atenolol was increased to 100 mg by mouth daily with heart rate remaining in the 60s on telemetry with ventricular pacing and majority SBP in the 100's (ACEI was decreased). Last pacer check March 2016 with battery longevity 5 months-- pending follow-up with Dr. Bryson for monitoring. Regarding long-term anticoagulation, does not appear to be on anticoagulation other than aspirin. He reports was stopped by a poultry service technician many years ago for reasons unknown to him (had been on Coumadin). Discussed with Dr. Valles with recs to consider DOAC. I had preliminary discussion with patient regarding joint terminal attack controller AC. Further recs once discussed with son. Qualifiers: Atrial fibrillation type: paroxysmal Qualified Code(s): I48.0 - Paroxysmal atrial fibrillation (3) CAD (coronary artery disease) Current Visit: Yes Status: Chronic Per Cardiology: Previous records reviewed and last catheterization many years ago which showed moderate nonobstructive disease. Initial troponins negative at 0.022 and subsequently 0.05. Stress test completed today negative for ischemia or infarct. Echo showed preserved EF 55%, no segmental wall motion abnormalities, mild to moderate MR, mild TR, mild WA, mild pulmonary hypertension. Suspect demand ischemia with VERA. No cardiac rehabilitation warranted at this time. On asa, statin, beta wanda, CEE inhibitor. Qualifiers: Coronary Disease-Associated Artery/Lesion type: [place] artery [place] vs. transplanted heart: [place] heart Associated angina: with other forms of angina Qualified Code(s): I25.118 - Atherosclerotic heart disease of [place] coronary artery with other forms of angina pectoris Discussion w patient/family: The assessment and plan as outlined above was discussed with the patient and/or family members who expressed understanding and agreement. All questions were answered. Thank you for involving us in the care of your patient. Please call with any questions. Subjective Principal diagnosis: SOB Interval history: Patient denies any new concerns or complaints. Reports shortness of breath improved. Objective Vital Signs, Last 4 Hours Temp Pulse Resp BP Pulse Ox 04/26/16 07:08 97.5 F L 64 16 106/58 98 General: Conversant, No Apparent Distress HEENT: Atraumatic, Normocephaly Cardiac: Reg Rate and Rhythm, Normal S1 and S2, No Murmur Lungs: Normal Breath Sounds, No Wheeze, Rales, Rhonchi Neuro: Alert and responsive, No focal deficits noted Extremities: Other (Trace nonpitting edema bilateral LE) Results 04/24/16 15:50 04/26/16 03:35 Lab Results Active Medications Allopurinol (Zyloprim) 200 mg PO DAILY IVÁN Stop: 10/25/16 09:01 Last Admin: 04/26/16 09:01 Dose: 200 mg Aspirin (Aspirin Ec) 81 mg PO DAILY IVÁN Stop: 10/25/16 09:01 Last Admin: 04/26/16 09:00 Dose: 81 mg Atenolol (Tenormin) 100 mg PO DAILY IVÁN Stop: 10/26/16 09:01 Last Admin: 04/26/16 09:00 Dose: 100 mg Atorvastatin Calcium (Lipitor) 5 mg PO DAILY IVÁN Stop: 10/25/16 09:01 Last Admin: 04/26/16 09:00 Dose: 5 mg Budesonide/Formoterol Fumarate (Symbicort) 2 puff IH BIDR IVÁN Stop: 10/24/16 22:01 Last Admin: 04/25/16 19:58 Dose: 2 puff Dextrose/Water (Dextrose 50% (Syg)) 25 ml IVP AD PRN PRN Reason: Hypoglycemia Stop: 10/24/16 19:33 Enoxaparin Sodium (Lovenox) 40 mg SQ 0600 IVÁN PRN Reason: Protocol Stop: 10/25/16 06:01 Last Admin: 04/26/16 05:20 Dose: 40 mg Fluticasone Propionate (Flonase) 50 mcg NS QPM IVÁN PRN Reason: Protocol Stop: 10/25/16 18:01 Last Admin: 04/25/16 17:35 Dose: Not Given Gabapentin (Neurontin) 300 mg PO TID IVÁN Stop: 10/24/16 21:01 Last Admin: 04/26/16 09:00 Dose: 300 mg Glucagon (Glucagen) 1 mg IM ONCE PRN PRN Reason: Hypoglycemia Stop: 10/24/16 19:33 Glucose (Gluctose) 15 gm PO ONCE PRN PRN Reason: Hypoglycemia Stop: 10/24/16 19:33 Glucose (Gluctose) 30 gm PO ONCE PRN PRN Reason: Hypoglycemia Stop: 10/24/16 19:33 Guaifenesin (Mucinex) 600 mg PO Q12H PRN PRN Reason: Congestion Stop: 10/24/16 19:16 Dextrose (Dextrose 5%) 1,000 mls @ 100 mls/hr IV CONT PRN PRN Reason: HYPOGLYCEMIA Stop: 10/24/16 19:33 Insulin Human Lispro (Humalog) 0 units SQ HS IVÁN PRN Reason: Protocol Stop: 10/24/16 21:01 Last Admin: 04/25/16 20:37 Dose: Not Given Insulin Human Lispro (Humalog) 0 units SQ TIDAC IVÁN PRN Reason: Protocol Stop: 10/25/16 07:31 Last Admin: 04/26/16 08:51 Dose: Not Given Lansoprazole (Prevacid) 30 mg PO DAILY IVÁN PRN Reason: Protocol Stop: 10/25/16 09:01 Last Admin: 04/26/16 08:59 Dose: 30 mg Levalbuterol HCl (Xopenex) 2 puff IH QID PRN PRN Reason: Shortness Of Breath/Wheezing Stop: 10/24/16 21:01 Lisinopril (Zestril) 20 mg PO DAILY IVÁN PRN Reason: Protocol Stop: 10/25/16 09:01 Last Admin: 04/26/16 09:01 Dose: Not Given Loratadine (Claritin) 10 mg PO DAILY IVÁN Stop: 10/25/16 09:01 Last Admin: 04/26/16 09:00 Dose: 10 mg Magnesium Oxide (Mag-Ox) 400 mg PO DAILY IVÁN PRN Reason: Protocol Stop: 10/25/16 09:01 Last Admin: 04/26/16 09:00 Dose: 400 mg Morphine Sulfate (Morphine Sulfate) 2 mg IVP Q4HR PRN PRN Reason: Severe Pain (7-10) Stop: 10/24/16 19:20 Naloxone HCl (Narcan) 0.4 mg IVP Q2MIN PRN PRN Reason: Opioid Reversal Stop: 10/24/16 19:20 Ondansetron HCl (Zofran) 4 mg IVP Q8HR PRN PRN Reason: Nausea And Vomiting Stop: 10/24/16 19:20 Pharmacy Profile Note (Patient Taking Own Medication) 0 each PO DAILY IVÁN Stop: 10/25/16 09:01 Last Admin: 04/26/16 09:00 Dose: Not Given Pharmacy Profile Note (Patient Taking Own Medication) 0 each PO DAILY IVÁN Stop: 10/25/16 09:01 Last Admin: 04/26/16 09:00 Dose: Not Given Pharmacy Profile Note (Patient Taking Own Medication) 0 each PO DAILY IVÁN Stop: 10/25/16 09:01 Last Admin: 04/26/16 09:00 Dose: Not Given - Imaging and Cardiology Stress Test: report reviewed Echo: report reviewed - EKG Interpretation EKG results cardiology: other (24 hr telemetry reviewed with average heart rate 62, intermittent pacing) Consult Discharge Plan - Plan Referrals: Sammy Renee MD [Primary Care Provider] - 04/26/16 2:45 pm
[2016-04-26] MEDS: Budesonide/Formoterol 160/4.5 MDI IH SCH ×2 (10:53→20:31)
--- NOTE | 2016-04-26 16:54 | Internal Med Progress Note ---
Date of Encounter: 04/26/16 Time of Encounter: 09:35 - Assessment and plan (1) Dyspnea on exertion Current Visit: Yes Status: Acute Assessment and plan: Acute on chronic Per patient has improved May be medication induced and due to VERA on CKD Cardiac work up unremarkable ECHO noted Not on home O2, VSS Continue to monitor (2) Atrial fibrillation Current Visit: Yes Status: Chronic Assessment and plan: Afib with PCM TIkosyn has been discontinued by cardiology Continue atenolol, decrease ACEI Continue Eliquis Continue telemetry Qualifiers: Atrial fibrillation type: paroxysmal Qualified Code(s): I48.0 - Paroxysmal atrial fibrillation (3) CAD (coronary artery disease) Current Visit: Yes Status: Chronic Assessment and plan: CP possibly stable angina Continue home meds Qualifiers: Coronary Disease-Associated Artery/Lesion type: [place] artery [place] vs. transplanted heart: [place] heart Associated angina: with other forms of angina Qualified Code(s): I25.118 - Atherosclerotic heart disease of [place] coronary artery with other forms of angina pectoris (4) CHF (congestive heart failure) Current Visit: Yes Status: Chronic Assessment and plan: NO evidence of congestion Continue home meds Qualifiers: Congestive heart failure type: diastolic Congestive heart failure chronicity: chronic Qualified Code(s): I50.32 - Chronic diastolic (congestive ) heart failure (5) Diabetes mellitus Current Visit: Yes Status: Chronic Assessment and plan: Sliding scale insulin, monitor FS Qualifiers: Diabetes mellitus type: type 2 Diabetes mellitus complication status: with kidney complications Diabetes mellitus complication detail: with chronic kidney disease Diabetes mellitus long term care social worker insulin use: without long term care social worker use Chronic kidney disease stage: stage 3 (moderate) Qualified Code(s): E11.22 - Type 2 diabetes mellitus with diabetic chronic kidney disease; N18.3 - Chronic kidney disease, stage 3 (moderate) (6) GERD (gastroesophageal reflux disease) Current Visit: Yes Status: Chronic Assessment and plan: Continue home meds Qualifiers: Esophagitis presence: esophagitis presence not specified Qualified Code(s) : K21.9 - Gastro-esophageal reflux disease without esophagitis (7) HTN (hypertension) Current Visit: Yes Status: Chronic Assessment and plan: Controlled, continue atenolol and lisinopril Renal function worsened today Qualifiers: Hypertension type: essential hypertension Qualified Code(s): I10 - Essential (primary) hypertension (8) Hyperkalemia Current Visit: Yes Status: Acute Assessment and plan: K 5.1 on admission Improved to 4.7, no treatment given Continue close monitoring (9) Acute on chronic renal insufficiency Current Visit: Yes Status: Acute Assessment and plan: Obtain renal USS Possibly a progression of CKD, further decrease Lisinopril Rpt chem a.m May need renal input if persistent - Subjective Interval history: 89 Y/O M admitted for evaluation of Chest pain and shortness of breath he has a PMH of COPD/Asbestosis, Afib s/p PCM, DJD with chronic back pain, DM< HTN, HLD Per patient PCM was interrogated 03/2016 Work up for chest pain has been negative, stress test showed no infarct, EKG is paced, Initial troponins negative at 0.022 and subsequently 0.05 His last PFT reports a moderate obstructive pattern, with air trapping, and severe diffusion impairment. ECHO done 04/25 showed LVEF 55%, Normal LV size and function, atypical septal motion, Dilated RV, MIld MR/TR/NC, Pulm HTN CXR is unremarkable Kidney function today worsened with elevated BUN but GFr remained same Chart review revealed abnormal renal function since 10/2015, patient is unable to say if he ever had a renal USS I suspect this may be a progression of his CKD as he has proteinuria Cardiology review appreciated, tikosyn has been discontinued, lisinopril decreased, eliquis has been started patient had one episode of low blood pressure overnight, but BP has been stable on current meds Will obtain renal USS prior to discharge - Constitutional Vitals: Temp Pulse Resp BP Pulse Ox 97.4 F L 68 16 111/61 96 04/26/16 15:21 04/26/16 15:21 04/26/16 15:21 04/26/16 15:21 04/26/16 15:21 General appearance: Present: A&O X 3, pleasant, no acute distress, obese - Head Head exam: Present: atraumatic, normocephalic - Eye Eye exam: Present: PERRL, conjuntiva pink, sclera anicteric Pupils: Present: PERRL - Neck Neck exam general surgery: Present: supple, trachea midline. Absent: lymphadenopathy - Respiratory Respiratory exam: Present: CTAB. Absent: accessory muscle use, rales, rhonchi, wheezes - Cardiovascular Cardiovascular exam: Present: RRR, +S1, +S2. Absent: diastolic murmur, gallop, rubs, systolic murmur - GI/Abdominal GI/Abdominal exam: Present: normal bowel sounds, soft, no peritoneal signs. Absent: distended, tenderness - Extremities Exam Extremities exam: Present: warm, radial pulses palpable and symetrical. Absent : calf tenderness, cyanotic, pedal edema - Neurological Exam Neurological exam: Present: CN II-XII intact, oriented X3, no focal deficits. Absent: pronater drift, facial droop, speech deficit - Skin Skin exam: Present: dry, intact Internal Medicine: Result - Labs CBC & Chem 7: 04/24/16 15:50 04/26/16 03:35 - ABG Interpretation ABG results: PT/INR, D-dimer PT 13.7 Seconds (9.4-12.1) H 04/24/16 15:50 Consult Discharge Plan - Plan Referrals: Sammy Renee MD [Primary Care Provider] -
[2016-04-26] MEDS: Fluticasone Propionate Nasal 50 MCG/SPRAY BOTTLE NS SCH (17:05)
[2016-04-26] MEDS: APIXABAN 5 MG TABLET PO SCH (21:21)
[2016-04-27] MEDS ORDERED: *HR* Enoxaparin 30 MG/0.3 ML SYRINGE SQ SCH (06:00)
[2016-04-27] MEDS: Budesonide/Formoterol 160/4.5 MDI IH SCH (07:38)
[2016-04-27] MEDS: Insulin LISPRO 300 UNITS/3 ML VIAL SQ SCH (08:03)
[2016-04-27] MEDS: Gabapentin 300 MG CAPSULE PO SCH (08:41)
[2016-04-27] MEDS: APIXABAN 5 MG TABLET PO SCH (08:41)
[2016-04-27] MEDS: Aspirin Enteric Coated 81 MG Tablet PO SCH (08:42)
[2016-04-27] MEDS: Magnesium Oxide 400 MG TABLET PO SCH (08:42)
[2016-04-27] MEDS: (Omega-3s/Dha/Epa/Fish Oil [Fish Oil 1,200 Mg Softgel PO SCH (08:43)
[2016-04-27] MEDS: (Ezetimibe [Zetia] 10 MG) PO SCH (08:43)
[2016-04-27] MEDS: (Dutasteride [Avodart] 0.5 MG) PO SCH (08:43)
[2016-04-27] MEDS: Loratadine 10 MG TABLET PO SCH (08:43)
[2016-04-27] MEDS ORDERED: Lisinopril 20 MG TABLET PO SCH (09:00)
[2016-04-27] MEDS ORDERED: Finasteride 5 MG TABLET PO SCH (09:00)
[2016-04-27 09:04] LABS: Calcium 9.1 mg/dL (8.6-10.8); Potassium 4.4 mEq/L (3.5-4.5)
[2016-04-27 11:49] VITALS: BP 142/67
--- NOTE | 2016-04-27 12:08 | Discharge Summary ---
Date of Encounter: 04/27/16 Time of Encounter: 11:30 (0) - Discharge Diagnosis (1) Dyspnea on exertion Priority: Primary Status: Acute (2) Atrial fibrillation Priority: Secondary Status: Chronic Qualifiers: Atrial fibrillation type: paroxysmal Qualified Code(s): I48.0 - Paroxysmal atrial fibrillation (3) CAD (coronary artery disease) Priority: Secondary Status: Chronic Qualifiers: Coronary Disease-Associated Artery/Lesion type: [place] artery [place] vs. transplanted heart: [place] heart Associated angina: with other forms of angina Qualified Code(s): I25.118 - Atherosclerotic heart disease of [place] coronary artery with other forms of angina pectoris (4) CHF (congestive heart failure) Priority: Secondary Status: Chronic Qualifiers: Congestive heart failure type: diastolic Congestive heart failure chronicity: chronic Qualified Code(s): I50.32 - Chronic diastolic (congestive ) heart failure (5) Diabetes mellitus Priority: Secondary Status: Chronic Qualifiers: Diabetes mellitus type: type 2 Diabetes mellitus complication status: with kidney complications Diabetes mellitus complication detail: with chronic kidney disease Diabetes mellitus fdc insulin use: without fdc use Chronic kidney disease stage: stage 3 (moderate) Qualified Code(s): E11.22 - Type 2 diabetes mellitus with diabetic chronic kidney disease; N18.3 - Chronic kidney disease, stage 3 (moderate) (6) GERD (gastroesophageal reflux disease) Priority: Secondary Status: Chronic Qualifiers: Esophagitis presence: esophagitis presence not specified Qualified Code(s) : K21.9 - Gastro-esophageal reflux disease without esophagitis (7) HTN (hypertension) Priority: Secondary Status: Chronic Qualifiers: Hypertension type: essential hypertension Qualified Code(s): I10 - Essential (primary) hypertension (8) Hyperkalemia Priority: Primary Status: Resolved (9) Acute on chronic renal insufficiency Priority: Primary Status: Acute - Discharge Medications Prescriptions: Apixaban [Eliquis] 2.5 mg PO BID #60 tablet Atenolol [Tenormin] 100 mg PO DAILY #60 tablet Lisinopril [Zestril] 10 mg PO DAILY #30 tablet Tamsulosin [Flomax] 0.4 mg PO DAILY #30 capsule Home Medications: Allopurinol [Zyloprim] 200 mg PO DAILY 11/15/14 [History] Aspirin Enteric Coated [Aspirin EC] 81 mg PO DAILY 11/15/14 [History] Atorvastatin [Lipitor] 5 mg PO DAILY 11/15/14 [History] Dutasteride [Avodart] 0.5 mg PO DAILY 11/15/14 [History] Ezetimibe [Zetia] 10 mg PO DAILY 11/15/14 [History] Fluticasone/Salmeterol [Advair 250-50 Diskus] 1 puff IH BID 11/15/14 [History] Gabapentin [Neurontin] 300 mg PO TID 11/15/14 [History] Lansoprazole [Prevacid] 30 mg PO DAILY 11/15/14 [History] Levalbuterol [Xopenex] 2 puff IH QID 11/15/14 [History] Magnesium Oxide [Mag-Ox] 400 mg PO DAILY 11/15/14 [History] [place]-3S/Dha/Epa/Fish Oil [Fish Oil 1,200 mg Softgel] 1 cap PO DAILY 11/15/14 [ History] Cetirizine HCl [Zyrtec] 10 mg PO DAILY 04/24/16 [History] Fluticasone Propionate Nasal [Flonase] 50 mcg NS QPM 04/24/16 [History] Guaifenesin [Mucinex] 600 mg PO Q12H PRN 04/24/16 [History] Apixaban [Eliquis] 2.5 mg PO BID #60 tablet 04/27/16 [Rx] Atenolol [Tenormin] 100 mg PO DAILY #60 tablet 04/27/16 [Rx] Lisinopril [Zestril] 10 mg PO DAILY #30 tablet 04/27/16 [Rx] Tamsulosin [Flomax] 0.4 mg PO DAILY #30 capsule 04/27/16 [Rx] Allergies/Adverse Reactions: Allergies amlodipine Allergy (Verified 04/24/16 12:57) Hives Penicillins [PCN] Allergy (Verified 04/24/16 12:57) Hives Sulfa (Sulfonamide Antibiotics) Allergy (Verified 04/24/16 12:57) Hives Procedures/tests Complete & Pending: Procedures Performed prior 72 hours Category Date Time Status ECG 12 lead ECG [ECG] Routine Y 04/25/16 15:31 Completed Date of admission: 04/26/16 14:26 Primary care physician: Sammy Renee MD Discharging clinician: Andres Stanley Anticipated date of discharge: 04/27/16 - Patient Status Disposition: Home, Self-Care Condition: Fair Functional capacity at discharge: independent ambulation Overall status at discharge: patient is progressing back to baseline - Discharge Instructions Instructions: Atenolol (By mouth), Lisinopril (By mouth), Tamsulosin (By mouth) , Apixaban (By mouth) Follow Up With: Sammy Renee MD [Primary Care Provider] - - Diet and Activity Activity: resume usual activities as tolerated Diet: diabetic diet, low fat, low cholesterol, low salt diet Interval History: See below Hospital course: 89 Y/O M admitted for evaluation of Chest pain and shortness of breath He has a PMH of COPD/Asbestosis, Afib s/p PCM, DJD with chronic back pain, DM, HTN, HLD, BPH Per patient PCM was interrogated 03/2016 Work up for chest pain was negative, stress test showed no infarct, EKG is paced , Initial troponins negative at 0.022 and subsequently 0.05 His last PFT reports a moderate obstructive pattern, with air trapping, and severe diffusion impairment. ECHO done 04/25 showed LVEF 55%, Normal LV size and function, atypical septal motion, Dilated RV, MIld MR/TR/IA, Pulm HTN CXR is unremarkable Labs revealed acute on chronic renal insufficiency and hyperkalemia Cardiology was consulted as part of work up Patient has been on Tikosyn for >20 years but acute on chronic renal insufficiency warranted a discontinuation Atenolol was increased to 100mg daily Lisinopril was decreased from 40 to 10mg daily Renal function improved today and hyperkalemia has resolved Renal USS showed no hydronephrosis or evidence of CKD, but showed elevated BPH with significant post-void volume Patient seen at bedside with son this morning Reports his SOB has resolved and he feels better Medication reconciliation has been discussed with the patient and his son, including addition of tamsulosin Eliquis has been started for anticoagulation for paroxysmal Afib Patient and his son would prefer to follow up with his PCP as he already has a urologist that he is following with Follow up with PCP and cardiology He verbalized understanding of plan of care - Time Spent with Patient Total time spent providing and/or coordinating discharge services: Less than 30 minutes - Constitutional Vitals: Temp Pulse Resp BP Pulse Ox 97.5 F L 66 16 142/67 96 02/23/17 11:39 04/27/16 11:39 04/27/16 11:39 04/27/16 11:39 04/27/16 11:39 General appearance: Present: A&O X 3, pleasant, no acute distress, obese - Head Head exam: Present: atraumatic, normocephalic - Eye Eye exam: Present: PERRL, conjuntiva pink, sclera anicteric Pupils: Present: PERRL - Neck Neck exam general surgery: Present: supple, trachea midline. Absent: lymphadenopathy - Respiratory Respiratory exam: Present: CTAB. Absent: accessory muscle use, rales, rhonchi, wheezes - Cardiovascular Cardiovascular exam: Present: RRR, +S1, +S2. Absent: diastolic murmur, gallop, rubs, systolic murmur - GI/Abdominal GI/Abdominal exam: Present: normal bowel sounds, soft, no peritoneal signs. Absent: distended, tenderness - Extremities Exam Extremities exam: Present: warm, radial pulses palpable and symetrical. Absent : calf tenderness, cyanotic, pedal edema - Neurological Exam Neurological exam: Present: CN II-XII intact, oriented X3, no focal deficits. Absent: pronater drift, facial droop, speech deficit - Skin Skin exam: Present: dry, intact
--- NOTE | 2016-04-27 17:42 | Electrocardiograph Report ---
[place] [id number] Test Date: 2016-04-25 Pat Name: Beto Jean Department: 113 Room: 3B13 Gender: M Underwriting Intern: : 1925 Requested By: Andres Stanley Order Number: [id number] Reading MD: Ignacio Bryson Measurements Intervals [place] Rate: 67 P: NC: 0 QRS: -64 QRSD: 199 T: 100 QT: 545 QTc: 560 Interpretive Statements ELECTRONIC VENTRICULAR PACEMAKER ABNORMAL RHYTHM ECG Electronically Signed On 04-27-2016 17:40:34 EST by Ignacio Bryson
== END 2016-04-27 12:50 | disposition home or self-care (01) | DRG 683 ==
LOC: EMEROO 14:58 → 3ANU 14:58 → SUATTDRO 17:20 → 3ANU 18:17 → 3BNU 18:24
PROVIDERS: ADMIT Registered Nurse; ATTEND Internal Medicine